=== PATIENT | male | born 1945 | race Caucasian/White ===

== ENCOUNTER → 2022-06-25 | Outpatient (CLI) | payer BC, MEDICARE ==
--- NOTE | 2022-06-25 14:17 | MR ---
EXAMINATION TYPE: MR Prostate wo/w con DATE OF EXAM: 06/25/2022 6:59 AM COMPARISON: None. CLINICAL INDICATION:Male, 77 years old with history of N40.2 NODULAR PROSTATE; TECHNIQUE: Multi-planar, multi-sequence imaging of the pelvis is performed prior to and following the uncomplicated administration of bolus intravenous gadolinium. CONTRAST: 9 Gadavist Interpretive Criteria: PI-RADS v2.1 SERUM PSA: 1.4 on 05/02/2022 SURGICAL PATHOLOGY: No data available. FINDINGS: Prostatic dimensions: 7.4 x 7.4 x 6.2 cm. Ellipsoid Volume: 175.37 (PSA density=0.01 ng/mL/mL) CENTRAL GLAND (Central and Transition Zones/CZ+TZ): Multiple bilateral, heterogenous appearing hypertrophic stromal nodules, without suspicious lesion. M edian lobe hypertrophy with protrusion into the base of the bladder. (PI-RADS 2) PERIPHERAL ZONE (PZ): Atrophic appearing due to benign prostatic hypertrophy changes of the central gland. No areas of rest ricted diffusion identified. (PI-RADS 2) SEMINAL VESICLES (SV): Symmetric and unremarkable. PERIPROSTATIC TISSUES: Unremarkable. LYMPH NODES: No enlarged pelvic lymph node. REMAINING PELVIS: Circumferential bladder wall thickening with trabeculations likely secondary to chronic bladder outfl ow obstruction. Hurst catheter is in place with considerable cuff in appropriate position. No abnormal free or organized intrapelvic fluid collection. No pathologic bowel dilation or mural thickening. OSSEOUS STRUCTURES: No suspicious osseous abnormality. IMPRESSION: 1. No specific features for high-risk prostate cancer. Maximum PI-RADS score: 2. 2. Substantial BPH, estimated gland volume 175 cc.
== END | disposition home or self-care (01) ==
LOC: RADMRIMAIN 05:39
PROVIDERS: ATTEND Urology
DX: N40.2 Nodular prostate without lower urinary tract symptoms (principal)
CPT/HCPCS: 72197; A9585

== ENCOUNTER → 2022-06-26 | Outpatient (CLI) | payer BC, MEDICARE ==
[2022-06-26 20:08] LABS: African American GFR (CKD) 105.1 (60.0-200.0); Anion Gap 8.9 mmol/L (10.00-18.00); BUN/Creat Ratio 25.03 Ratio (12.00-20.00); Blood Urea Nitrogen 18.3 mg/dL (9.0-27.0); Carbon Dioxide 25.4 mmol/L (20.0-27.5); Non-African American GFR(CKD) 90.7 (60.0-200.0); Potassium 3.7 mmol/L (3.5-5.5)
[2022-06-26 21:09] LABS: Appearance,Urine Cloudy (Clear); Bilirubin,Urine Negative (Negative); Blood,Urine Large (Negative); Color,Urine Dark Yellow (Yellow); Ketones,Urine Trace mg/dL (Negative); Nitrite,Urine Positive (Negative); Specific Gravity,Urine 1.026 (1.001-1.030)
[2022-06-26 21:34] LABS: Bacteria,Urine 3+ /HPF (None Seen)
[2022-06-26 23:52] LABS: Basophils # (A) 0.02 X 10*3/uL (0.00-0.10); Basophils % (A) 0.5 %; Eosinophils # (A) 0.02 X 10*3/uL (0.04-0.35); Eosinophils % (A) 0.5 %; HCT 36.6 % (39.6-50.0); HGB 11.9 g/dL (13.0-17.0); Immature Grans, Automated 0.2 %; Lymphocytes # (A) 1.63 X 10*3/uL (0.90-5.00); MCH 28.5 pg (27.0-32.0); MCHC 32.5 g/dL (32.0-37.0); MCV 87.8 fL (80.0-97.0); Mean Platelet Volume 10.5 fL (9.5-12.2); Monocytes % (A) 9.3 %; NRBC Per 100 WBC 0 /100 WBCS (0.0-0.0); Neutrophils # (A) 2.21 X 10*3/uL (1.80-7.70); Neutrophils % (A) 51.5 %; Platelet Count 166 X 10*3/uL (140-440); RBC 4.17 X 10*6/uL (4.40-5.60); WBC 4.29 X 10*3/uL (4.50-10.00)
== END | disposition home or self-care (01) ==
LOC: LABPAT 13:46
PROVIDERS: ATTEND Urology
DX: Z01.812 Encounter for preprocedural laboratory examination (principal); N40.1 Benign prostatic hyperplasia with lower urinary tract symptoms; R31.29 Other microscopic hematuria
CPT/HCPCS: 80048; 81001; 85025; 87086

== ENCOUNTER → 2022-06-29 | Outpatient (CLI) | payer BC, MEDICARE ==
[~2022-06-29] MED LIST: DOBUTamine DRIP for NUC MED 500 MG in DEXTROSE/WATER 1 250ML.BAG IV PRN
--- NOTE | 2022-06-29 17:07 | CA ---
Dobutamine Stress Echocardiogram Report Kris Roque Age: 77 Gender: M : 1945 Exam Date: 06/29/2022 09:47 Exam Location: [facility] Ordering Physician: Ramón Morejon DO ([email or web address]) Referring Physician: CHERYLE, Vessel Manager: Sony Lee Technologist: Ht (in): 69 Wt (lb): 190 Procedure CPT: Indication: R06.02 SOB ICD-9 Codes: Rhythm: Patient History: Cardiac Medications: Medications in past 24 hours: Contrast: Total Dose (mL): Stress Results Protocol: Dobutamine Peak Dose (???g/kg/min): 30 Duration (min:sec): Atropine:(mg) Target HR: 123 Double Product: 10801 Resting HR: 62 Resting BP: 128 / 69 Peak HR: 133 Peak BP: 164 / 83 Max Predicted HR: 145 92 % Max Predicted HR Stress Summary: BP Response: Reason for Termination: Target HR Cardiac Symptoms: NO SYMPTOMS ECG Analysis Resting EKG: Stress EKG: Arrhythmia: Echo Analysis Base Echo Analysis: Low Echo Anaylsis: Peak Echo Analysis: Recovery Echo: MEASUREMENTS (Male/Female) Normal Values CONCLUSIONS Patient underwent dobutamine stress echo with infusion of dobutamine into Stage 3 for a total of 7 minutes 43 seconds. Patient's maximum heart rate was 133 which represented 91% age- predicted maximum heart rate. Stress EKG portion: At baseline patient's EKG showed normal sinus rhythm, normal axis, no significant ST or T wave abnormalities. At peak dobutamine infusion, EKG showed no significant change from baseline. Stress echo portion: 2-D echocardiogram was performed in the parasternal long, personal short, apical 2 and apical four-chamber views at rest, low-dose, peak infusion and in recovery. At baseline, echocardiogram showed left ventricular ejection fraction 55% without wall motion abnormalities. With peak infusion, echocardiogram shows improvement in left ventricular ejection fraction, increase contractility, decrease in left ventricular end systolic dimension without wall motion abnormalities consistent with a normal response to dobutamine. Conclusions: 1. Normal stress EKG and echo response to dobutamine infusion without any evidence of inducible ischemia. Dr. Ramón Morejon DO (Electronically Signed) Final Date: 29 June 2022 17:06
== END | disposition home or self-care (01) ==
LOC: RADNMMAIN 09:09
PROVIDERS: ATTEND Internal Medicine
DX: Z01.810 Encounter for preprocedural cardiovascular examination (principal); R06.02 Shortness of breath; R07.9 Chest pain, unspecified
CPT/HCPCS: 93351

== ENCOUNTER 2022-07-05 09:02 | Inpatient (IN) | payer BC, MEDICARE ==
[~2022-07-05 09:02] MED LIST changes: -DOBUTamine DRIP for NUC MED 500 MG in DEXTROSE/WATER 1 250ML.BAG IV PRN; +HEPARIN SODIUM,PORCINE/PF 5,000 UNIT/0.5 ML SYRINGE SQ PRN
[2022-07-05] MEDS ORDERED: ONDANSETRON 4 MG/2 ML VIAL ONE (10:13)
[2022-07-05] MEDS ORDERED: ONDANSETRON 4 MG/2 ML VIAL IVP ONE ×3 (10:19→16:18)
[2022-07-05] MEDS ORDERED: DEXAMETHASONE SOD PHOSPHATE 4 MG/ML 1 ML VIAL IVP ONE (10:19)
[2022-07-05] MEDS ORDERED: LACTATED RINGERS 1,000 ML IV ONE ×3 (10:20→16:30)
--- NOTE | 2022-07-05 10:34 | P.HPIHPCON ---
History of Present Illness Chief Complaint: Urinary retention, BPH This is a 77-year-old male with history of urinary retention, has failed multip le trial of void. Underwent a cystoscopy which showed evidence of a significant prostate enlargement, on the right of the prostate showed 175 g prostate. Option of a robotic simple prostatectomy versus a hole up was discussed with him in detail. He agreed to proceed with a robotic simple prostatectomy. Discussed with him the risk which includes but not limited to bleeding, infection, urinary incontinence, erectile dysfunction, retrograde ejaculation. Discussed also the potential of developing strictures, potential of persistent retention even with a robotic simple. Discussed also risk from anesthesia which includes but not limited to heart attack, stroke, blood clots. He understood all the risk and agree to proceed with a robotic simple prostatectomy Consent for Procedure: I have explained the operation/procedure to the patient, including the risks, benefits, side effects, alternative therapies (including not receiving the proposed treatment or service), the likelihood of the patient achieving his/her goals, and potential recuperation problems for the procedure/sedation/analgesia, as well as any blood products, if indicated. I also explained to the patient the risks, benefits and side effects of the alternatives, as well as the risks related to not receiving the proposed procedure, care, treatment, or services. Past Medical History Past Medical History: Chest Pain / Angina, GERD/Reflux, Hyperlipidemia, Memory Impairment, Prostate Disorder, Seizure Disorder Additional Past Medical History / Comment(s): epilepsy no recent seizures, hiatal hernia, History of Any Multi-Drug Resistant Organisms: MRSA Date of last positivie culture/infection: unknown MDRO Source:: rt leg Additional Past Surgical History / Comment(s): left eye surgery for glaucoma, retinal repair, hand surgery to repair injury left hand, Past Anesthesia/Blood Transfusion Reactions: No Reported Reaction Smoking Status: Former smoker Medications and Allergies Home Medications Medication Instructions Recorded Confirmed Type Atorvastatin Calcium 40 mg PO HS 07/02/22 07/05/22 History Isosorbide Mononitrate ER [Imdur] 30 mg PO HS 07/02/22 07/05/22 History LORazepam 0.5 mg PO HS 07/02/22 07/05/22 History [place] Carbonate 150 mg PO HS 07/02/22 07/05/22 History Omeprazole [PriLOSEC] 20 mg PO AC-BRKFST 07/02/22 07/05/22 History carBAMazepine [Carbatrol] 200 mg PO HS 07/02/22 07/05/22 History Allergies Allergy/AdvReac Type Severity Reaction Status Date / Time Penicillins Allergy Severe Anaphylaxis Verified 07/05/22 09:44 Surgical - Exam Vital Signs Temp Pulse Resp BP Pulse Ox 97.3 F L 76 16 118/78 98 07/05/22 09:45 07/05/22 09:45 07/05/22 09:45 07/05/22 09:45 07/05/22 09:45 - General no distress, no pain - Eyes normal ocular movement, no pale - ENT normal nares, normal mucosa - Respiratory normal expansion, normal respiratory effort - Abdomen Abdomen: soft, non tender - Psychiatric oriented to time, oriented to person, oriented to place Assessment and Plan Assessment: OR for robotic simple prostatectomy
[2022-07-05] MEDS ORDERED: MIDAZOLAM 2 MG/2 ML VIAL IVP ONE (10:38)
[2022-07-05] MEDS ORDERED: ROCURONIUM 10 MG/ML (5 ML VIAL) IV ONE (11:17)
[2022-07-05] MEDS ORDERED: SUCCINYLCHOLINE CHLORIDE 200 MG/10 ML VIAL IV ONE (11:17)
[2022-07-05] MEDS ORDERED: PROPOFOL 10 MG/ML 20 ML VIAL IV ONE (11:17)
[2022-07-05] MEDS ORDERED: fentaNYL (PF) 50 MCG/ML 2 ML AMP ONE (11:17)
[2022-07-05] MEDS ORDERED: SODIUM CHLORIDE 0.9% (PF) 10 ML VIAL ONE (11:17)
[2022-07-05] MEDS ORDERED: DEXAMETHASONE SOD PHOSPHATE 4 MG/ML 1 ML VIAL ONE (11:17)
[2022-07-05] MEDS ORDERED: NEOSTIGMINE 1 MG/ML 10 ML VIAL ONE (11:17)
[2022-07-05] MEDS ORDERED: GLYCOPYRROLATE 0.2 MG/ML 2 ML VIAL ONE (11:17)
[2022-07-05] MEDS ORDERED: ROPIVACAINE 5 MG/ML 30 ML VIAL ONE (11:17)
[2022-07-05] MEDS ORDERED: MIDAZOLAM 2 MG/2 ML VIAL ONE (11:17)
[2022-07-05] MEDS ORDERED: HYDROmorphone (PF) 1 MG/ML ONE (11:17)
[2022-07-05] MEDS ORDERED: LIDOCAINE 2% INJ 20 MG/ML (2 ML VIAL) ONE (11:17)
[2022-07-05] MEDS ORDERED: DEXAMETHASONE SOD PHOSPHATE 4 MG/ML 1 ML VIAL IV ONE (12:09)
[2022-07-05] MEDS ORDERED: MIDAZOLAM 2 MG/2 ML VIAL IV PRN (12:09)
[2022-07-05] MEDS ORDERED: LIDOCAINE 1% (10MG/ML) FOR IV START INTRADERMA PRN (12:09)
--- NOTE | 2022-07-05 12:25 | XR ---
EXAMINATION TYPE: XR KUB DATE OF EXAM: 07/05/2022 Comparison: None Clinical History: 77-year-old male preoperative evaluation on prostate, N40.1 Findings: There is moderate stool burden. Nonobstructive bowel gas pattern. Bowel content largely appears the r enal shadows. Small pelvic phleboliths. Slight degenerative levoconvex curvature of the lumbar spine. Impression: Moderate stool burden. Nonobstructive bowel gas pattern.
--- NOTE | 2022-07-05 14:25 | P.OP ---
Date of Procedure: 07/05/22 Preoperative Diagnosis: BPH, urinary retention Postoperative Diagnosis: Same Procedure(s) Performed: Robotic simple prostatectomy Implants: None Anesthesia: LANNY Surgeon: John Arias Estimated Blood Loss (ml): 150 Pathology: other (Prostate adenoma) Condition: stable Disposition: PACU Indications for Procedure: This is a 77-year-old male with history of urinary retention, has failed multiple trial of void. Underwent a cystoscopy which showed evidence of a significant prostate enlargement, on the right of the prostate showed 175 g prostate. Option of a robotic simple prostatectomy versus a hole up was discussed with him in detail. He agreed to proceed with a robotic simple prostatectomy. Discussed with him the risk which includes but not limited to bleeding, infection, urinary incontinence, erectile dysfunction, retrograde ejaculation. Discussed also the potential of developing strictures, potential of persistent retention even with a robotic simple. Discussed also risk from anesthesia which includes but not limited to heart attack, stroke, blood clots. He understood all the risk and agree to proceed with a robotic simple prostatectomy Description of Procedure: After preoperative antibiotics were started, the patient was taken to the operating room. Anesthesia was induced and the patient was placed in a supine position with adequate padding of the pressure points, shoulders, back, legs and arms. He was then prepped and draped in the standard fashion. A critical pause was performed using two patient identifiers. A 16F ba catheter was placed to gravity drainage. A pneumoperitoneum was obtained using a Veress needle, after pneumoperitoneum was obtained a 8 mm camera port was placed. Under direct vision a 8mm robotic ports was placed lateral to each rectus slightly below the camera port. The left iliac fossa 8mm port was placed. The right maintenance assistant right iliac fossa 12mm port and right paramedian 5mm portwere placed. After the patient was placed in the trendelenberg position, the robot was then docked to the 8mm robotic ports and then each robotic arm and tower was checked in relation to the patient's legs and hands to avoid inadvertent compression. The peritoneal cavity was inspected. Adhesions were taken down along the left lower quadrant An inverted U-shaped incision began laterally to the left medial umbilical ligament and extended high across the midline to the right umbilical ligament. The limbs of the "U" extended to the level of the vasa on both sides. We next developed the preperitoneal space and the space of Retzius. Cautery was used to dissected the bladder away from the prostate, the incision was made in close proximity to the prostate, and incision was extended laterally and at this point the plane between the adenoma and the surgical capsule is identified. Both ureteral orifices were identified and neither was injured during the dissection . The adenoma was dissected off of the capsule by combination of blunt dissection and minimum cautery. dissection was initially started along the anterior surface and posterior surface of adenoma, and this was carried laterally. The dissection was carried to the apex, at this point the urethral-prostatic junction was visualized and the prostate was transected at the junction. Prostate adenoma was placed in an endocatch bag . A 9and 6 inch 3-0 V-Lock suture was used to anastomose the urethra and bladder, starting at the 6:00 posterior position. Mucosa was secured in every stitch, to ensure a mucosa to mucosa anastomosis. The stitch was regularly cinched and the anastomosis tightened. . The 20 Fr Ba catheter was advanced, the bladder filled, and the anastomosis was tested. Anastomsis was watertight at 150 mL. balloon was inflated to 10 mL The robot was undocked. specimen was extracted from the supraumbilical incision. The periumbilical fascia was closed with 1-0-PDS suture in figure of 8 fashion. All ports were closed with a subcuticular 4-0 monocryl and Dermabond. Sponge, instrument, and needle counts were correct at the end of the case x2. The patient tolerated the surgery well and without complication. He awoke without difficulty and was taken to the recovery room in stable condition
[2022-07-05] MEDS: HYDROmorphone 0.5 MG/0.5 ML SYRINGE IVP PRN ×2 (15:15→16:15)
[2022-07-05] MEDS ORDERED: KETOROLAC 15 MG/ML 1 ML VIAL IVP ONE (15:58)
[2022-07-05] MEDS ORDERED: MORPHINE SULFATE 4 MG/ML SYRINGE IVP PRN (16:51)
[2022-07-05] MEDS: LACTATED RINGERS 1,000 ML IV SCH (17:10)
[2022-07-05] MEDS: D5-0.45% NACL WITH KCL 20MEQ/L 1,000 ML IV SCH ×2 (17:11→17:58)
[2022-07-05] MEDS: KETOROLAC 15 MG/ML 1 ML VIAL IVP SCH ×2 (17:57→23:35)
[2022-07-05] MEDS: HEPARIN SODIUM,PORCINE/PF 5,000 UNIT/0.5 ML SYRINGE SQ SCH ×2 (17:58→23:34)
[2022-07-05] MEDS: CIPROFLOXACIN HCL 500 MG TAB PO SCH (20:10)
[2022-07-05] MEDS: carBAMazepine 200 MG TAB PO SCH (20:10)
[2022-07-05] MEDS: ISOSORBIDE MONONITRATE ER 30 MG TAB.ER.24H PO SCH (20:10)
[2022-07-05] MEDS: LORazepam 0.5 MG TAB PO SCH (20:10)
[2022-07-05] MEDS: LITHIUM CARBONATE 150 MG CAP PO SCH (20:10)
[2022-07-05] MEDS: HYDROcodone/APAP 5-325MG 1 EACH TAB PO PRN (20:13)
--- NOTE | 2022-07-05 21:57 | P.ANPRN ---
Procedure Note - Anesthesia - Nerve Block Performed Bilateral Erector Spinae Single Time Out Performed: Yes Date of Procedure: 07/05/22 Procedure Start Time: 10:37 Procedure Stop Time: 10:42 Location of Patient: PreOp Indication: Acute Post-Operative Pain, Requested by Surgeon Sedation Type: Sedate with meaningful contact maintained Preparation: Sterile Prep Position: Prone Needle Types: Pajunk Needle Gauge: 21 Ultrasound used to visualize needle placement: Yes Ultrasound used to observe medication spread: Yes Blood Aspirated: No Pain Paresthesia on Injection Noted: No Resistance on Injection: Normal Image Stored and Saved: Yes Events: Uneventful and Well Tolerated (ropi .5% 15cc plus ns 10cc plus dexamethasone 4mg given bilaterally at Li)
[2022-07-06] MEDS: KETOROLAC 15 MG/ML 1 ML VIAL IVP SCH ×3 (05:26→18:12)
[2022-07-06] MEDS: HEPARIN SODIUM,PORCINE/PF 5,000 UNIT/0.5 ML SYRINGE SQ SCH ×2 (08:24→15:23)
[2022-07-06] MEDS: CIPROFLOXACIN HCL 500 MG TAB PO SCH ×2 (08:25→22:19)
[2022-07-06] MEDS: HYDROcodone/APAP 5-325MG 1 EACH TAB PO PRN ×3 (08:25→22:25)
[2022-07-06] MEDS: PANTOPRAZOLE 40 MG TABLET PO SCH (08:28)
[2022-07-06] MEDS: D5-0.45% NACL WITH KCL 20MEQ/L 1,000 ML IV SCH ×3 (12:38→18:13)
--- NOTE | 2022-07-06 13:14 | P.PN ---
Subjective Progress Note Date: 07/06/22 Principal diagnosis: BPH, Urinary retention This is a 77-year-old male with history of urinary retention, has failed multiple trial of void. Underwent a cystoscopy which showed evidence of a significant prostate enlargement, on the right of the prostate showed 175 g prostate. Option of a robotic simple prostatectomy versus a hole up was discussed with him in detail. He agreed to proceed with a robotic simple prostatectomy. . On 07/05/22 The patient went to the OR with Dr. Hatch and underwent a robotic simple prostatectomy. He was sent to the PACU in stable condition. Objective - Vital Signs Vital signs: Vital Signs Temp 97.5 F L 07/06/22 05:00 Pulse 57 L 07/06/22 05:00 Resp 16 07/06/22 05:00 BP 132/78 07/06/22 05:00 Pulse Ox 98 07/06/22 05:00 FiO2 Intake & Output 07/05/22 07/06/22 07/06/22 18:59 06:59 18:59 Intake Total 2700 240 Output Total 650 2800 Balance 2050 -2560 Weight 87.1 kg Intake: IV 2700 Oral 240 Output: Urine 500 2800 Estimated Blood Loss 150 Other: Voiding Method Indwelling Catheter - Exam General: Well developed, well nourished. No acute distress. HEENT: Head is atraumatic, normocephalic. CV: Heart regular in rate and rhythm positive S1 and S2. Lungs: Respirations even and nonlabored. On 2 NC Abdomen/GI: Soft. non-distended. No guarding, rigidity, or abdominal tenderness. : Ba catheter in place draining blood tinged urine. Skin: Warm and dry. Laparoscopic incisions to abdomen CDI, and open to air. Neurologic: Awake, alert and oriented times 3. CN II-XII grossly intact. No focal deficits. Psychiatric: Appropriate mood and affect. Assessment and Plan Assessment: The patient is lying in bed and appears comfortable. He states he has had mild abdominal pain, but it is well controlled with the prescribed pain medications. He was able to eat breakfast and denies any nausea or vomiting. He is aafebrile and vitals are stable. He is on 2L O2, denies any sob. Ba catheter draining blood tinged urine. (1) BPH (benign prostatic hyperplasia) Current Visit: Yes Status: Acute Code(s): N40.0 - BENIGN PROSTATIC HYPERPLASIA WITHOUT LOWER URINRY TRACT SYMP SNOMED Code(s): 370058908 Plan: - Continue current pain regimen - Encourage incentive spirometer 10x hour - Increase activity - ba catheter will stay in place for 10 days Impression and plan of care have been directed as dictated by the signing physician. Azucena Fournier nurse practitioner acting as scribe for signing physician. Azucena Fournier [facility]- Palliative Care/Urology [facility] [id number] Email: [email or web address] I personally performed and participated in the history, physical, the decision making, I agree with the assessment and plan of CHECK OUT CLERK
[2022-07-06] MEDS: LACTATED RINGERS 1,000 ML IV SCH (14:12)
[2022-07-06] MEDS: carBAMazepine 200 MG TAB PO SCH (22:17)
[2022-07-06] MEDS: LORazepam 0.5 MG TAB PO SCH (22:17)
[2022-07-06] MEDS: ISOSORBIDE MONONITRATE ER 30 MG TAB.ER.24H PO SCH (22:17)
[2022-07-06] MEDS: LITHIUM CARBONATE 150 MG CAP PO SCH (22:17)
[2022-07-07] MEDS: KETOROLAC 15 MG/ML 1 ML VIAL IVP SCH ×3 (00:37→11:26)
[2022-07-07] MEDS: HEPARIN SODIUM,PORCINE/PF 5,000 UNIT/0.5 ML SYRINGE SQ SCH ×2 (00:38→08:37)
[2022-07-07] MEDS: D5-0.45% NACL WITH KCL 20MEQ/L 1,000 ML IV SCH ×2 (02:08→10:56)
[2022-07-07 05:09] VITALS: TEMP 97.9
[2022-07-07] MEDS: PANTOPRAZOLE 40 MG TABLET PO SCH (08:37)
[2022-07-07] MEDS: CIPROFLOXACIN HCL 500 MG TAB PO SCH (08:37)
[2022-07-07] MEDS: HYDROcodone/APAP 5-325MG 1 EACH TAB PO PRN (11:26)
--- NOTE | 2022-07-07 11:41 | P.PN ---
Subjective Progress Note Date: 07/07/22 Patient catheter was removed accidentally yesterday, he was able to void. Denies any abdominal pain or nausea or vomiting Objective - Vital Signs Vital signs: Vital Signs Temp 97.9 F 07/07/22 04:23 Pulse 70 07/07/22 04:23 Resp 15 07/07/22 04:23 BP 126/74 07/07/22 04:23 Pulse Ox 95 07/07/22 04:23 FiO2 Intake & Output 07/06/22 07/07/22 07/07/22 18:59 06:59 18:59 Intake Total 1500 Output Total 625 Balance 875 Intake: Intake, IV Titration 1500 Amount D5-0.45% NaCl with KCl 1500 20Meq/l 1,000 ml @ 125 mls/hr IV .Q8H [facility] Rx#: [id number] Output: Urine 625 Uretheral (Hurst) 400 Other: Voiding Method Toilet Toilet # Voids 4 1 - Constitutional General appearance: Present: no acute distress Assessment and Plan Assessment: Status post robotic simple prostatectomy postop day #2. Hurst was removed accidentally yesterday on postoperative day #1, was able to void post catheter removal -Discussed with him given its a fresh simple prostatectomy we'll need to reinsert the catheter. 18-[place] Hurst catheter was placed sterilely with return of 300 mL of urine -Okay for discharge from urology standpoint, (1) BPH (benign prostatic hyperplasia) Current Visit: Yes Status: Acute Code(s): N40.0 - BENIGN PROSTATIC HYPERPLASIA WITHOUT LOWER URINRY TRACT SYMP SNOMED Code(s): 725092358
--- NOTE | 2022-07-07 11:42 | P.DS ---
Providers Date of admission: 07/05/22 09:02 Attending physician: John Arias MD Primary care physician: Oren Cortes - Discharge Diagnosis(es) (1) BPH (benign prostatic hyperplasia) Current Visit: Yes Status: Acute Hospital Course: This is a 77-year-old male history of urinary retention and BPH. Underwent a robotic supple prostatectomy on July 05. Patient Hurst catheter was accidentally removed on postop day #1. Hurst catheter was reinserted and postop day #2. Patient was discharged home on postop day #2 at time of discharge he was tolerating a diet, ambulating, pain was controlled Plan - Discharge Summary Discharge Rx Participant: No New Discharge Prescriptions: No Action [place] Carbonate 150 mg PO HS carBAMazepine [Carbatrol] 200 mg PO HS Omeprazole [PriLOSEC] 20 mg PO AC-BRKFST LORazepam 0.5 mg PO HS Isosorbide Mononitrate ER [Imdur] 30 mg PO HS Atorvastatin Calcium 40 mg PO HS Discharge Medication List Atorvastatin Calcium 40 mg PO HS 07/02/22 [History] Isosorbide Mononitrate ER [Imdur] 30 mg PO HS 07/02/22 [History] LORazepam 0.5 mg PO HS 07/02/22 [History] [place] Carbonate 150 mg PO HS 07/02/22 [History] Omeprazole [PriLOSEC] 20 mg PO AC-BRKFST 07/02/22 [History] carBAMazepine [Carbatrol] 200 mg PO HS 07/02/22 [History]
[2022-07-07 11:59] VITALS: BP 165/90; PULSE 77; RESP 18
[2022-07-07] MEDS: LACTATED RINGERS 1,000 ML IV SCH (15:39)
== END 2022-07-07 16:00 | disposition home or self-care (01) | DRG 708 ==
LOC: 2ORMAIN 09:02 → 5NMEDONC 15:37
PROVIDERS: ADMIT Urology; ATTEND Urology
PROC: 8E0W4CZ Robotic Assisted Procedure of Trunk Region, Percutaneous Endoscopic Approach (ICD-10-PCS; 2022-07-05)
PROC: 0VT04ZZ Resection of Prostate, Percutaneous Endoscopic Approach (ICD-10-PCS; principal; 2022-07-05 10:55)
DX: N40.1 Benign prostatic hyperplasia with lower urinary tract symptoms (principal); G40.909 Epilepsy, unspecified, not intractable, without status epilepticus; E78.5 Hyperlipidemia, unspecified; R31.0 Gross hematuria; R33.8 Other retention of urine; Z87.891 Personal history of nicotine dependence; Z88.0 Allergy status to penicillin; R41.3 Other amnesia; Z86.14 Personal history of Methicillin resistant Staphylococcus aureus infection
CPT/HCPCS: 64999; 74018; 86850; 86900; 86901; 88307

== ENCOUNTER 2022-07-14 13:28 | Emergency (ER) | payer BC, MEDICARE ==
[2022-07-14 13:35] VITALS: RESP 16; TEMP 98
[2022-07-14] MEDS ORDERED: SODIUM CHLORIDE 0.9% 500 ML 500 ML IV STA (13:56)
[2022-07-14 14:21] LABS: Basophils # (A) 0.1 k/uL (0-0.2); Basophils % (A) 1 %; Eosinophils # (A) 0.1 k/uL (0-0.7); Eosinophils % (A) 1 %; HCT 37.7 % (39.0-53.0); HGB 12.7 gm/dL (13.0-17.5); Lymphocytes # (A) 1.7 k/uL (1.0-4.8); Lymphocytes % (A) 27 %; MCH 28.7 pg (25.0-35.0); MCHC 33.6 g/dL (31.0-37.0); MCV 85.4 fL (80.0-100.0); Mean Platelet Volume 7.9; Monocytes # (A) 0.3 k/uL (0-1.0); Monocytes % (A) 5 %; Neutrophils # (A) 3.9 k/uL (1.3-7.7); Neutrophils % (A) 64 %; Platelet Count 224 k/uL (150-450); RBC 4.41 m/uL (4.30-5.90); RDW 14.5 % (11.5-15.5); WBC 6.2 k/uL (3.8-10.6)
[2022-07-14 14:25] LABS: INR 0.9 (<1.2); Partial Thromboplastin Time 23.3 sec (22.0-30.0)
[2022-07-14 14:37] LABS: Appearance,Urine Cloudy (Clear); Bilirubin,Urine Negative (Negative); Blood,Urine Large (Negative); Color,Urine Red; Glucose,Urine (UA) Negative (Negative); Ketones,Urine Trace (Negative); Leukocyte Esterase,Urine Moderate (Negative); Mucus,Urine Moderate /hpf; Nitrite,Urine Negative (Negative); Protein,Urine 2+ (Negative); RBC,Urine >182 /hpf (0-5); Urobilinogen,Urine <2.0 mg/dL (<2.0); WBC,Urine 30 /hpf (0-5)
--- NOTE | 2022-07-14 14:38 | ED ---
General Adult HPI - General Chief complaint: Abdominal Pain Stated complaint: blood in urine Time Seen by Provider: 07/14/22 13:45 Source: patient, RN notes reviewed, old records reviewed Mode of arrival: ambulatory Limitations: no limitations - History of Present Illness Initial comments: Patient is a 77-year-old male with past medical history remarkable for prostate disorder, epilepsy, who recently received a robotic supple prostatectomy on July 05. Presents today complaining of cooper hematuria as well as bilateral lower quadrant abdominal pain. He knows the hematuria starting more on July 10 through his Hurst catheter. Initially attributed it to drinking too much iced tea. However it has persisted. It is also noticed some lower quadrant abdominal discomfort. Believes he may have mild constipation as well as he is having hard stools which is somewhat chronic for him. Last bowel movement yesterday that was normal for him. Denies any fevers or chills. Denies any nausea or vomiting. Denies any diarrhea. Denies any chest pain or shortness of breath. Has no acute complaints at this time. Presents for further evaluation at this time. Did call the on-call urology team, who recommended that he be evaluated at the ER. - Related Data Home Medications Medication Instructions Recorded Confirmed Atorvastatin Calcium 40 mg PO HS 07/02/22 07/05/22 Isosorbide Mononitrate ER [Imdur] 30 mg PO HS 07/02/22 07/05/22 LORazepam 0.5 mg PO HS 07/02/22 07/05/22 [place] Carbonate 150 mg PO HS 07/02/22 07/05/22 Omeprazole [PriLOSEC] 20 mg PO AC-BRKFST 07/02/22 07/05/22 carBAMazepine [Carbatrol] 200 mg PO HS 07/02/22 07/05/22 Previous Rx's Medication Instructions Recorded HYDROcodone/APAP 5-325MG [[place] 1 tab PO Q6HR PRN 3 Days #12 tab 07/07/22 5-325] Ketorolac [Toradol] 10 mg PO Q6HR PRN #15 tab 07/07/22 Sulfamethox-Tmp 800-160Mg [Bactrim 1 tab PO Q12HR #20 tab 07/07/22 DS 800-160 mg] Docusate Sodium [Dok] 100 mg PO DAILY PRN 7 Days #7 07/14/22 capsule Allergies Allergy/AdvReac Type Severity Reaction Status Date / Time Penicillins Allergy Severe Anaphylaxis Verified 07/14/22 13:34 Review of Systems ROS Statement: Those systems with pertinent positive or pertinent negative responses have been documented in the HPI. Review of Systems: CONST: Denies fever EYES: Denies blurry vision ENT: Denies nasal congestion C/V: Denies Chest pain RESP: Denies shortness of breath GI: Endorses lower quadrant abdominal discomfort. : Endorses hematuria SKIN: Denies rash. MSK: Denies joint pain. NEURO: Denies headache ROS Other: All systems not noted in ROS Statement are negative. Past Medical History Past Medical History: Chest Pain / Angina, GERD/Reflux, Hyperlipidemia, Memory Impairment, Prostate Disorder, Seizure Disorder Additional Past Medical History / Comment(s): epilepsy no recent seizures, hiatal hernia, History of Any Multi-Drug Resistant Organisms: MRSA Date of last positivie culture/infection: unknown MDRO Source:: rt leg Additional Past Surgical History / Comment(s): left eye surgery for glaucoma, retinal repair, hand surgery to repair injury left hand, Past Anesthesia/Blood Transfusion Reactions: No Reported Reaction Past Psychological History: Anxiety Smoking Status: Former smoker General Exam - General Exam Comments Initial Comments: General: Appears in no acute distress. HEAD: Normal with no signs of head trauma. EYES: PERRLA, EOMI, conjunctiva normal, no discharge. ENT: Hearing grossly intact, normal oropharynx. RESPIRATORY: Clear breath sounds bilaterally. No wheezes, rales, or rhonchi. C/V: Regular rate and rhythm. S1 and S2 auscultated, no edema, peripheral pulses 2+ and intact throughout ABD: Abdomen is soft, nondistended. Mild tenderness to palpation in the bilateral lower quadrants as well as in the suprapubic region.. Surgical incisions are healing, and appear clean. No obvious signs of infection. No guarding. No peritoneal signs. No rebound tenderness. Cooper hematuria on the patient's Hurst catheter. This adequately draining. EXT: Normal range of motion, no obvious deformity SKIN: No rashes or lesions observed on exposed skin. NEURO: Alert and oriented 4. Limitations: no limitations Course Vital Signs 07/14/22 07/14/22 13:34 17:04 Temperature 98 F Pulse Rate 79 78 Respiratory 16 16 Rate Blood Pressure 140/86 122/74 O2 Sat by Pulse 98 98 Oximetry Medical Decision Making - Medical Decision Making Based on the patient's presentation and physical exam, he is postop complaining of lower abdominal pain as well as hematuria. We will obtain basic abdominal laboratory studies. Differential includes postop medication, UTI. He is on Bactrim right now for UTI. However we will obtain a CT abdomen and pelvis as he is recently postop with postop pain. There were any agreement this plan. Vital signs within acceptable limits. He will be given a 1 L fluid bolus. Refuses analgesic medications at this time. Patient's laboratory studies are remarkable for a hemoglobin of 12.7 which is actually improved from 2 weeks ago. Renal function is within acceptable limits. Patient's urinalysis shows a large amount of blood, as well as some WBCs present. This fits with his gross hematuria. Due to the abdominal pain, we did obtain a CT abdomen and pelvis. CT abdomen and pelvis is interpreted by myself reveals what appears to be some bladder thickening as well as some inflammatory changes in the abdominal wall but no other acute findings. Radiology concurs with this read, and states that shows postsurgical changes in addition to bladder wall thickening. This is all likely secondary to his recent procedure. At this time I did contact Dr. Rich who is covering for Dr. Arias. We did discuss the patient's workup including his CT results. He requested that the Hurst catheter remain in place and it not be swapped out. Also requested that we flush the catheter to ensure it is adequately draining. Due to the normal hemoglobin, as well as absence of infectious signs, he believes the patient is stable for discharge home as long as the above instructions are followed and if the catheter is draining adequately. I discussed this with the patient he was in agreement this plan. We were able to irrigate the Hurst as well as the bladder without difficulty. Patient will be discharged home with follow-up with Dr. Arias asked week, with the premade appointment on Saturday. I instructed him to continue his home medications including the Bactrim that he was prescribed. I will provide the patient with a prescription for docusate. I instructed the patient to follow up with their PCP in the next 1-3 days. I explained that the patient should return to the emergency department if they experience any worsening symptoms. Strict return precautions were discussed with the patient. The patient expressed understanding of these instructions. I answered all questions that the patient had. The patient was discharged home in good conditi on with their prescriptions and follow up information. - Lab Data Result diagrams: 07/14/22 14:05 07/14/22 14:05 Lab Results 07/14/22 07/14/22 07/14/22 Range/Units 14:05 14:05 14:05 WBC 6.2 (3.8-10.6) k/uL RBC 4.41 (4.30-5.90) m/uL Hgb 12.7 L (13.0-17.5) gm/dL Hct 37.7 L (39.0-53.0) % MCV 85.4 (80.0-100.0) fL MCH 28.7 (25.0-35.0) pg MCHC 33.6 (31.0-37.0) g/dL RDW 14.5 (11.5-15.5) % Plt Count 224 (150-450) k/uL MPV 7.9 Neutrophils % 64 % Lymphocytes % 27 % Monocytes % 5 % Eosinophils % 1 % Basophils % 1 % Neutrophils # 3.9 (1.3-7.7) k/uL Lymphocytes # 1.7 (1.0-4.8) k/uL Monocytes # 0.3 (0-1.0) k/uL Eosinophils # 0.1 (0-0.7) k/uL Basophils # 0.1 (0-0.2) k/uL PT (9.0-12.0) sec INR (<1.2) APTT (22.0-30.0) sec Sodium 134 L (137-145) mmol/L Potassium 4.3 (3.5-5.1) mmol/L Chloride 103 (98-107) mmol/L Carbon Dioxide 24 (22-30) mmol/L Anion Gap 7 mmol/L BUN 20 (9-20) mg/dL Creatinine 0.94 (0.66-1.25) mg/dL Est GFR (CKD-EPI)AfAm >90 (>60 ml/min/1.73 sqM) Est GFR (CKD-EPI)NonAf 79 (>60 ml/min/1.73 sqM) Glucose 114 H (74-99) mg/dL Calcium 9.0 (8.4-10.2) mg/dL Total Bilirubin 0.4 (0.2-1.3) mg/dL AST 34 (17-59) U/L ALT 45 (4-49) U/L Alkaline Phosphatase 165 H (38-126) U/L Total Protein 7.0 (6.3-8.2) g/dL Albumin 4.0 (3.5-5.0) g/dL Lipase 69 (23-300) U/L Urine Color Red Urine Appearance Cloudy (Clear) Urine pH 6.0 (5.0-8.0) Ur Specific [place] 1.020 (1.001-1.035) Urine Protein 2+ H (Negative) Urine Glucose (UA) Negative (Negative) Urine Ketones Trace H (Negative) Urine Blood Large H (Negative) Urine Nitrite Negative (Negative) Urine Bilirubin Negative (Negative) Urine Urobilinogen <2.0 (<2.0) mg/dL Ur Leukocyte Esterase Moderate H (Negative) Urine RBC >182 H (0-5) /hpf Urine WBC 30 H (0-5) /hpf Urine Mucus Moderate H (None) /hpf 07/14/22 Range/Units 14:05 WBC (3.8-10.6) k/uL RBC (4.30-5.90) m/uL Hgb (13.0-17.5) gm/dL Hct (39.0-53.0) % MCV (80.0-100.0) fL MCH (25.0-35.0) pg MCHC (31.0-37.0) g/dL RDW (11.5-15.5) % Plt Count (150-450) k/uL MPV Neutrophils % % Lymphocytes % % Monocytes % % Eosinophils % % Basophils % % Neutrophils # (1.3-7.7) k/uL Lymphocytes # (1.0-4.8) k/uL Monocytes # (0-1.0) k/uL Eosinophils # (0-0.7) k/uL Basophils # (0-0.2) k/uL PT 10.0 (9.0-12.0) sec INR 0.9 (<1.2) APTT 23.3 (22.0-30.0) sec Sodium (137-145) mmol/L Potassium (3.5-5.1) mmol/L Chloride (98-107) mmol/L Carbon Dioxide (22-30) mmol/L Anion Gap mmol/L BUN (9-20) mg/dL Creatinine (0.66-1.25) mg/dL Est GFR (CKD-EPI)AfAm (>60 ml/min/1.73 sqM) Est GFR (CKD-EPI)NonAf (>60 ml/min/1.73 sqM) Glucose (74-99) mg/dL Calcium (8.4-10.2) mg/dL Total Bilirubin (0.2-1.3) mg/dL AST (17-59) U/L ALT (4-49) U/L Alkaline Phosphatase (38-126) U/L Total Protein (6.3-8.2) g/dL Albumin (3.5-5.0) g/dL Lipase (23-300) U/L Urine Color Urine Appearance (Clear) Urine pH (5.0-8.0) Ur Specific [place] (1.001-1.035) Urine Protein (Negative) Urine Glucose (UA) (Negative) Urine Ketones (Negative) Urine Blood (Negative) Urine Nitrite (Negative) Urine Bilirubin (Negative) Urine Urobilinogen (<2.0) mg/dL Ur Leukocyte Esterase (Negative) Urine RBC (0-5) /hpf Urine WBC (0-5) /hpf Urine Mucus (None) /hpf Disposition Clinical Impression: Hematuria, S/P prostatectomy Disposition: HOME SELF-CARE Condition: Good Instructions (If sedation given, give patient instructions): Hematuria (ED) Prescriptions: Docusate Sodium [Dok] 100 mg PO DAILY PRN 7 Days #7 capsule PRN Reason: Constipation Is patient prescribed a controlled substance at d/c from ED?: No Referrals: Oren Cortes MD [Primary Care Provider] - 1-2 days John Arias MD [STAFF PHYSICIAN] - 1-2 days Time of Disposition: 16:40
[2022-07-14 14:59] LABS: ALT 45 U/L (4-49); AST 34 U/L (17-59); African American GFR (CKD) >90 (>60 ml/min/1.73 sqM); Alkaline Phosphatase 165 U/L (38-126); Anion Gap 7 mmol/L; Blood Urea Nitrogen 20 mg/dL (9-20); Carbon Dioxide 24 mmol/L (22-30); Chloride 103 mmol/L (98-107); Glucose 114 mg/dL (74-99); Lipase 69 U/L (23-300); Non-African American GFR(CKD) 79 (>60 ml/min/1.73 sqM); Potassium 4.3 mmol/L (3.5-5.1); Sodium 134 mmol/L (137-145); Total Bilirubin 0.4 mg/dL (0.2-1.3)
--- NOTE | 2022-07-14 16:14 | CT ---
EXAMINATION TYPE: CT abdomen pelvis w con CT DLP: 1226.8 mGycm, Automated exposure control for dose reduction was used. DATE OF EXAM: 07/14/2022 3:55 PM COMPARISON: [facility] 07/05/2022, MRI prostate 06/25/2022 CT abdomen pelvis most recent from CLINICAL INDICATION:Male, 77 years old with history of post op pain, hematuria; POST OP. hematuria. TECHNIQUE: Axial CT of the abdomen and pelvis. Sagittal and coronal reformats were created on a [employer] workstation. Contrast used:100ml mL of Isovue 300 with IV Contrast, Oral contrast used: without Oral Contrast FINDINGS: LOWER CHEST: Posterior dependent subsegmental atelectasis is noted. ABDOMEN LIVER: Unremarkable GALLBLADDER AND BILE DUCTS: Unremarkable. PANCREAS: Unremarkable. SPLEEN: Unremarkable. ADRENAL GLANDS: Unremarkable. KIDNEYS AND URETERS: Bilateral parapelvic cysts. No hydronephrosis. Lower pole renal cyst. PELVIS BLADDER: Circumferential bladder wall thickening with pronounced perivesicular inflammatory changes. Hurst catheter is inserted within a partially decompressed urinary bladder. Air foci non-dependently likely from instrumentation. REPRODUCTIVE: Enlarged heterogeneous prostate. ABDOMEN & PELVIS STOMACH AND BOWEL: Large paraesophageal hiatal hernia. Small duodenal diverticulum.. Scattered divert icula are noted throughout the colon. No evidence of bowel obstruction. Appendix is unremarkable. PERITONEUM: No evidence of pneumoperitoneum or free fluid. VASCULATURE: Mild atherosclerotic calcifications are present throughout the abdominal aorta and its b ranches. No evidence of aortic aneurysm. MUSCULOSKELETAL: Moderate degenerative changes of the lumbar spine. Multiple Schmorl's nodes present. Mild degenerative changes of the hip joints bilaterally. LYMPH NODES: No gross evidence for lymphadenopathy. SOFT TISSUE/ABDOMINAL WALL: Midline subcutaneous fat stranding extending to the anterior abdominal wa ll with tiny foci of subcutaneous emphysema (series 203, image 75). Subcentimeter fat-containing umbi lical hernia. Small fat-containing left inguinal hernia. IMPRESSION: 1. Circumferential bladder wall thickening with marked inflammatory changes. Correlate with urinalys is to evaluate for acute cystitis. 2. Prostatomegaly. 3. Mild inflammatory changes of the supraumbilical abdominal wall, likely postsurgical versus medicat ion injection. 4. Additional chronic and incidental findings as detailed above.
[2022-07-14 17:04] VITALS: BP 122/74; PULSE 78
== END 2022-07-14 17:04 | disposition home or self-care (01) ==
LOC: EC 13:28
DX: Z90.79 Acquired absence of other genital organ(s) (principal); R31.9 Hematuria, unspecified; N40.0 Benign prostatic hyperplasia without lower urinary tract symptoms; K21.9 Gastro-esophageal reflux disease without esophagitis; E78.5 Hyperlipidemia, unspecified; F41.9 Anxiety disorder, unspecified; Z87.891 Personal history of nicotine dependence; Z79.02 Long term (current) use of antithrombotics/antiplatelets; Z79.899 Other long term (current) drug therapy; Z88.0 Allergy status to penicillin
CPT/HCPCS: 36415; 80053; 83690; 85025; 85610; 85730; 81001; 87086; 74177; 99284; 96360; 96361; Q9967